=== PATIENT | female | born 1960 | race African-American/Black ===

== ENCOUNTER 2023-06-21 11:12 | Outpatient (REF) | payer MEDICARE, MEDICAID, SELFPAY ==
--- NOTE | ~2023-06-21 | XR_ITS ---
EXAMINATION: XR hand LT min 3V, XR wrist RT min 3V, XR wrist LT min 3V, XR hand RT min 3V CLINICAL INFORMATION: Additional Information: BILATERAL HAND/WRIST PAIN AND STIFFNESS : COMPARISON: 11/10/2014 TECHNIQUE: 3 views of each hand. 3 views of each wrist. FINDINGS: Right wrist: No fracture or dislocation. The carpal rows are well aligned. Joint spaces are maintained. Small osteophytes at the triscaphe joint and first carpometacarpal joint. No osseous erosions. The soft tissues are unremarkable. Right hand: No fracture or dislocation. Anatomic alignment. Mild joint space narrowing at the fifth digit distal interphalangeal joint with small osteophytes. No osseous erosions. The soft tissues appear unremarkable. Left wrist: No fracture or dislocation. The carpal rows are well aligned. Joint spaces are maintained. Small osteophytes of the triscaphe joint and first carpometacarpal joint. The soft tissues appear unremarkable. No osseous erosions. Left hand: No fracture or dislocation. Alignment maintained. No osseous erosions. Joint spaces are maintained. The soft tissues are unremarkable. XR/XR hand RT min 3V IMPRESSION: 1. Mild degenerative changes at the triscaphe joint and first carpometacarpal joints bilaterally. 2. Mild degenerative changes at the right fifth digit distal interphalangeal joint. 3. No osseous erosions.
--- NOTE | ~2023-06-21 | XR_ITS ---
EXAMINATION: XR hand LT min 3V, XR wrist RT min 3V, XR wrist LT min 3V, XR hand RT min 3V CLINICAL INFORMATION: Additional Information: BILATERAL HAND/WRIST PAIN AND STIFFNESS : COMPARISON: 11/10/2014 TECHNIQUE: 3 views of each hand. 3 views of each wrist. FINDINGS: Right wrist: No fracture or dislocation. The carpal rows are well aligned. Joint spaces are maintained. Small osteophytes at the triscaphe joint and first carpometacarpal joint. No osseous erosions. The soft tissues are unremarkable. Right hand: No fracture or dislocation. Anatomic alignment. Mild joint space narrowing at the fifth digit distal interphalangeal joint with small osteophytes. No osseous erosions. The soft tissues appear unremarkable. Left wrist: No fracture or dislocation. The carpal rows are well aligned. Joint spaces are maintained. Small osteophytes of the triscaphe joint and first carpometacarpal joint. The soft tissues appear unremarkable. No osseous erosions. Left hand: No fracture or dislocation. Alignment maintained. No osseous erosions. Joint spaces are maintained. The soft tissues are unremarkable. XR/XR wrist LT min 3V IMPRESSION: 1. Mild degenerative changes at the triscaphe joint and first carpometacarpal joints bilaterally. 2. Mild degenerative changes at the right fifth digit distal interphalangeal joint. 3. No osseous erosions.
--- NOTE | ~2023-06-21 | XR_ITS ---
EXAMINATION: XR hand LT min 3V, XR wrist RT min 3V, XR wrist LT min 3V, XR hand RT min 3V CLINICAL INFORMATION: Additional Information: BILATERAL HAND/WRIST PAIN AND STIFFNESS : COMPARISON: 11/10/2014 TECHNIQUE: 3 views of each hand. 3 views of each wrist. FINDINGS: Right wrist: No fracture or dislocation. The carpal rows are well aligned. Joint spaces are maintained. Small osteophytes at the triscaphe joint and first carpometacarpal joint. No osseous erosions. The soft tissues are unremarkable. Right hand: No fracture or dislocation. Anatomic alignment. Mild joint space narrowing at the fifth digit distal interphalangeal joint with small osteophytes. No osseous erosions. The soft tissues appear unremarkable. Left wrist: No fracture or dislocation. The carpal rows are well aligned. Joint spaces are maintained. Small osteophytes of the triscaphe joint and first carpometacarpal joint. The soft tissues appear unremarkable. No osseous erosions. Left hand: No fracture or dislocation. Alignment maintained. No osseous erosions. Joint spaces are maintained. The soft tissues are unremarkable. XR/XR wrist RT min 3V IMPRESSION: 1. Mild degenerative changes at the triscaphe joint and first carpometacarpal joints bilaterally. 2. Mild degenerative changes at the right fifth digit distal interphalangeal joint. 3. No osseous erosions.
--- NOTE | ~2023-06-21 | XR_ITS ---
EXAMINATION: XR hand LT min 3V, XR wrist RT min 3V, XR wrist LT min 3V, XR hand RT min 3V CLINICAL INFORMATION: Additional Information: BILATERAL HAND/WRIST PAIN AND STIFFNESS : COMPARISON: 11/10/2014 TECHNIQUE: 3 views of each hand. 3 views of each wrist. FINDINGS: Right wrist: No fracture or dislocation. The carpal rows are well aligned. Joint spaces are maintained. Small osteophytes at the triscaphe joint and first carpometacarpal joint. No osseous erosions. The soft tissues are unremarkable. Right hand: No fracture or dislocation. Anatomic alignment. Mild joint space narrowing at the fifth digit distal interphalangeal joint with small osteophytes. No osseous erosions. The soft tissues appear unremarkable. Left wrist: No fracture or dislocation. The carpal rows are well aligned. Joint spaces are maintained. Small osteophytes of the triscaphe joint and first carpometacarpal joint. The soft tissues appear unremarkable. No osseous erosions. Left hand: No fracture or dislocation. Alignment maintained. No osseous erosions. Joint spaces are maintained. The soft tissues are unremarkable. XR/XR hand LT min 3V IMPRESSION: 1. Mild degenerative changes at the triscaphe joint and first carpometacarpal joints bilaterally. 2. Mild degenerative changes at the right fifth digit distal interphalangeal joint. 3. No osseous erosions.
== END 2023-06-21 11:13 | disposition home or self-care (01) ==
LOC: HO.HHCX 11:12
PROVIDERS: Visit Provider Family Medicine
DX: M79.641 Pain in right hand (principal); M79.642 Pain in left hand; M25.531 Pain in right wrist; M25.532 Pain in left wrist
CPT/HCPCS: 73110; 73130

== ENCOUNTER 2025-08-27 09:50 | Outpatient (REF) | payer MEDICARE, SELFPAY ==
[2025-09-03 11:48] LABS: Anti Nuclear Antibody Screen NEGATIVE (NEGATIVE)
== END 2025-08-27 09:51 | disposition home or self-care (01) ==
LOC: HO.HHCL 09:50
PROVIDERS: PCP Family Medicine; Visit Provider Internal Medicine
DX: Z01.84 Encounter for antibody response examination (principal); M19.041 Primary osteoarthritis, right hand; M19.042 Primary osteoarthritis, left hand
CPT/HCPCS: 36415; 85652; 86038; 86039; 86140; 86200; 86431

== ENCOUNTER 2025-10-02 08:26 | Outpatient (REF) | payer MEDICARE, SELFPAY ==
--- OUTSIDE RECORDS SUMMARY | 2025-10-02 08:49 | XMS_ITS | Clinical Summary ---
Author Organization [employer] Address [address] [place] [address] 7 [place] [address] Care Team Providers Care Manager General Name Role Phone Roberta Mercado MD Primary Care Provider +1- [phone] Allergies No known active allergies Medications ciclopirox (Penlac) 8 % solutionIndic ations:Onycho mycosis Apply topically at bedtime. Use on affected nail every night for 48 weeks Please keep as inexpensive as possible 18 mL 3 09/25/20 25 Active Estrace 0.01 % creamIndicati ons:Dyspareun ia, female INSERT 2 GRAMS VAGINALLY IN THE EVENING FOR 2 WEEKS THEN USE 1 GRAM TWICE WEEKLY AFTER 42.5 g 11 09/26/20 25 Active estradiol (Estrace) 0.1 MG/GM vaginal creamIndicati ons:Dyspareun ia, female 2 gram per vagina nightly for 2 weeks then use 1 gram per vagina twice a week thereafter 42.5 g 3 12/19/19 25 025 Discontinued(Re order (will not trigger notification to Pharmacy)) ciclopirox (Penlac) 8 % solutionIndic ations:Onycho mycosis Apply topically at bedtime. 6 mL 08/27/20 25 025 Discontinued(Me d list cleanup (will not trigger notification to Pharmacy)) Estradiol (Estrace) 0.01 % creamIndicati ons:Dyspareun ia, female Insert 2 g into the vagina every 4th (fourth) day. 2 gram per vagina nightly for 2 weeks then use 1 gram per vagina twice a week thereafter 42.5 g 11 09/25/20 25 025 Discontinued Active Problems Problem Noted Date Diagnosed Date Arthritis of both hands 08/27/2025 Assessment & Plan (08/27/2025 12:43 PM EDT): Blood work ordered patient will be contacted with results She may take acetaminophen as needed Onychomycosis 08/27/2025 Assessment & Plan (09/25/2025 12:28 PM EST): Responding well to treatment. Started 08/27/25 recommending 48 weeks treatment. Rheumatoid labs were normal. Orders: ciclopirox (Penlac) 8 % solution; Apply topically at bedtime. Use on affected nail every night for 48 weeks Please keep as inexpensive as possible Basic Metabolic Panel; Future CBC; Future Assessment & Plan (08/27/2025 12:43 PM EDT): Ciclopirox ordered today Acquired trigger finger 08/27/2025 Assessment & Plan (08/27/2025 12:42 PM EDT): Patient will like to hold for now referral for local injection Paronychia of fingers of both hands 08/27/2025 Assessment & Plan (08/27/2025 12:42 PM EDT): She already drain them, treatment is conservative, advise warm soaking Vaginal atrophy 12/19/2024 Overview (12/19/2024): -good response with estrogen cream 3x week Cardiac risk counseling 08/27/2024 Overview (08/27/2024): Calculated 08/27/24 The ASCVD Risk score (Belkis HERNANDEZ, et al., 2019) failed to calculate for the following reasons: Cannot find a previous HDL lab Cannot find a previous total cholesterol lab No results found for: LDLCHOL -Atherosclerotic Cardiovascular Disease (ASCVD) Risk Calculator is intended for a person age 40-79 without ASCVD and with LDL-cholesterol < 190/mg/dl to assesses the chances of developing heart disease over the next 10 years. -ACC/AHA risk categories based on a person's estimated 10-year risk of CVD: ?Low - <5 percent ?Borderline risk - 5 to 7.4 percent ?Intermediate risk- 7.5 to 19.9 percent ?High risk- >=20 percent -Tobacco cessation: not applicable -Statin therapy:N/A -Importance of moderate physical activity and nutrition interventions discussed. 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 No evidence of infection. She will continue at the gym. Declines OT but will call if changes her mind. Assessment & Plan (07/29/2024 12:00 PM EDT): -Declines further work up or intervention at this time. No evidence of infection. She will continue at the gym. Declines OT but will call if changes her mind. Colon cancer screening 12/27/2023 Overview (01/17/2025): -declines colon cancer screening at this time 07/29/24 Assessment & Plan (07/29/2024 10:13 AM EDT): -declines colon cancer screening at this time 07/29/24 Other specified health status 06/21/2023 Overview (09/25/2025): -next physical exam due after 09/25/26 -eye care facilitated by [facility] is [facility] -[facility] care proxy filed 07/29/24 Assessment & Plan (09/25/2025 12:28 PM EST): -next physical exam due after 09/25/26 -eye care facilitated by [facility] is [facility] -[facility] care proxy filed 07/29/24 Assessment & Plan (07/29/2024 11:58 AM EDT): -next physical exam due after 07/29/25 -eye care facilitated by [facility] is [facility] care proxy filed 07/29/24 Assessment & Plan (06/21/2023 10:53 AM EDT): -next physical exam due after 06/21/2024. -eye care facilitated by -dental home is Trigger finger of right hand 05/03/2022 Overview (07/29/2024): -stable, occasional, declines intervention as doing well. Assessment & Plan (07/29/2024 11:59 AM EDT): -stable, occasional, declines intervention as doing well. Resolved Problems Problem Noted Date Diagnosed Date Resolved Date Bilateral wrist pain 06/21/2023 024 Overview (06/21/2023): Bilateral wrist splints ordered 06/21/2023. Assessment & Plan (06/21/2023 11:08 AM EDT): Bilateral wrist splints ordered 06/21/2023. Bilateral hand pain 06/21/2023 07/29/20 24 Overview (07/29/2024): 06/21/23 XRs of both hands and wrists showed: IMPRESSION: 1. Mild degenerative changes at the triscaphe joint and first carpometacarpal joints bilaterally. 2. Mild degenerative changes at the right fifth digit distal interphalangeal joint. 3. No osseous erosions. -Rheumatoid factor was ordered on 06/21/23, but pt did not complete labs. Assessment & Plan (07/29/2024 10:14 AM EDT): 06/21/23 XRs of both hands and wrists showed: IMPRESSION: 1. Mild degenerative changes at the triscaphe joint and first carpometacarpal joints bilaterally. 2. Mild degenerative changes at the right fifth digit distal interphalangeal joint. 3. No osseous erosions. -Rheumatoid factor was ordered on 06/21/23, but pt did not complete labs. She denies wanting further testing at this time 07/29/24 Assessment & Plan (06/21/2023 11:07 AM EDT): Will check x-ray and rheumatoid factor. Will consider OT referral in the future. Abnormal mammogram 05/03/2022 Overview (07/29/2024): -declines mammo 07/29/24 Assessment & Plan (07/29/2024 10:13 AM EDT): -declines mammo 07/29/24 Encounters Date Type Department Care Team Description 10/02/2025 Travel 10/01/[address] [address] Roberta Mercado MD chart prep 09/25/2025 10:00 AM EST Office Visit [address] [address] Roberta Mercado MD Epidermoid cyst (Primary Dx); Onychomycosis; Dyspareunia, female; Vitamin D deficiency; Screening cholesterol level; Other specified health status 09/25/[address] [address] Roberta Mercado MD Dyspareunia, female 09/25/2025 Travel 09/24/2025 Telephone [facility] [address] [place] [address] [phone] Imelda Penaloza [place] 09/18/2025 Patient Outreach [facility] [address] [place], [place] [phone] Roberta Mercado MD Pre-visit Planning (SDOH was already completed ) 09/18/2025 Travel 09/15/[address] [address] Kendra Wang MD 09/12/2025 Results Follow-Up [address] [phone] Kendra Wang MD Rheumatoid Factor, Cyclic Citrullinated Peptide (CCP) Antibody (IgG), PATRICIA Screen,IFA, with Reflex to Titer and Pattern, Additional followed-up results: 2 08/27/2025 9:15 AM EDT Office Visit [address] [phone] Kendra Wang MD Arthritis of both hands (Primary Dx); Onychomycosis; Acquired trigger finger; Paronychia of fingers of both hands 08/27/2025 Travel 08/26/[address] [address] Kendra Wang MD CHART PREP 08/26/2025 Travel 07/29/[address] [address] Roberta Mercado MD FYI 07/24/[address] [address] Roberta Mercado MD cancel appt 08/28/25 from Last 3 Months Immunizations Immunization Administration Dates Next Due TD (adult), 2 Lf tetanus tox oid, preservative free, adsorbed 02/20/2008 Social History Tobacco Use Types Packs/Day Years Used Date Smoking Tobacco: Never Passive Smoke Exposure: Never Smokeless Tobacco: Never Tobacco Cessation:Counseling Given: Not Answered Alcohol Use Standard Drinks/Week Comments Never 0 (1 standard drink = 0.6 oz pur e alcohol) Depression Answer Date Recorded Patient Health Questionnaire-9 Score 1 08/27/2025 Patient Health Questionnaire-9 Score 1 08/27/2025 Last PHQ-9: Questionnaire Data Not on file 1 Housing Stability Answer Date Recorded What is your housing situation today? I have kendallrowan srinivasan 08/27/[address] you li ve. Do you have problems with any of the following? None of the above 08/27/2025 Food Insecurity Answer Date Recorded Within the past 12 months, y ou worried that your food would run out before you got money to buy more: Never True 08/27/2025 Within the past 12 months,th e food you bought just didn't last and you didn't have enough money to get more: Never True 06/2025 Transportation Answer Date Recorded In the past 12 months, has l ack of transportation kept you from medical appts, meetings, work or from getting things needed for daily living? No 08/27/2025 Utilities Answer Date Recorded In the past 12 months, has t he [employer], gas, oil or water [employer] threatened to shut off services in your home? No 08/27/2025 Depression Answer Date Recorded Patient Health Questionnaire-2 Score 0 08/27/2025 Internet Access Answer Date Recorded Internet Access Q1 Yes 08/27/2025 Internet Access Q2 Not on file 08/27/2025 Comments Unknown Sex and Gender Information Value Date Recorded Sex Assigned at Female 09/19/2022 10:18 AM EDT Legal Sex Female 10:18 AM EDT Gender Identity Female 09/19/2022 10:18 AM EDT Sexual Orientation Straight 09/19/2022 10 :18 AM EDT Last Filed Vital Signs Vital Sign Reading Time Taken Comments Blood Pressure 118/62 09/25/2025 10:11 AM EST Pulse 76 09/25/2025 10:11 AM EST Temperature 36.2 C (97.1 F) 09/25/2025 10:11 AM EST Respiratory Rate 17 09/25/2025 10:11 AM EST Oxygen Saturation 99% 08/27/2025 9:10 AM EDT Inhaled Oxygen Concentration - - Weight 64.2 kg (141 lb 8 oz) 09/25/2025 10:11 AM EST Height 165.1 cm (5' 5 ) 09/25/2025 10:11 AM EST Body Mass Index 23.55 09/25/2025 10:11 AM EST Plan of Treatment Upcoming Encounters Date Type Department Care Team (Late st Contact Info) Description 10/02/2025 9:00 AM EST Office Visit [facility] [address] [place] [phone] Roberta Mercado MD [address] [place] [address] Arrived Health Maintenance Due Date Last Done Comments CT Colonography 1958 Colonoscopy 1958 Colorectal Cancer Screening 1958 FIT DNA/Cologuard 1958 FIT 1958 FOBT 1958 Sigmoidoscopy 1958 Mammogram 04/29/2021 04/29/2019 Influenza Vaccine (#1) 2026 Postp oned from 07/21/2025 (Patient Refused) Alcohol/Substance Use Screening 08/27/2026 08/27/2025 Depression Screening 08/27/2026 08/27/2025, 08/27/2025 SDOH Screening 08/27/2026 08/27/2025 COVID-19 Vaccine (1 - 2024-2 6 season) 2026 Postponed from 07/21/2025 (Patient Refused) DTaP/Tdap/Td Vaccines (1 - Tdap) 09/25/2026 02/20/2008 Postponed from 02/21/2008 (Patient Refused) Pneumococcal Vaccine: 50+ Years (1 of 1 - PCV) 09/25/2026 Postponed from 2008 (Patient Refused) Tobacco Screening 09/25/2026 09/25/2025 Zoster Vaccines (1 of 2) 09/25/2026 Pos tponed from 2008 (Patient Refused) RSV Patients and Patients Aged 60 years or older (1 - 1-dose 75+ series) 2033 Cervical Cancer Screening Discontinued HPV/Cotest Discontinued 04/18/2019, 04/18/2019 Pap Smear Discontinued 04/18/2019 HIB Vaccines Aged Out No longer eligi ble based on patient's age to complete this topic HPV Vaccines Aged Out No longer eligi ble based on patient's age to complete this topic Hepatitis A Vaccines Aged Out No long er eligible based on patient's age to complete this topic Hepatitis B Vaccines Aged Out No long er eligible based on patient's age to complete this topic Hepatitis C Screening Discontinued IPV Vaccines Aged Out No longer eligi ble based on patient's age to complete this topic Meningococcal B Vaccine Aged Out No l onger eligible based on patient's age to complete this topic Meningococcal Vaccine Aged Out No emanuel rupert eligible based on patient's age to complete this topic RSV under 20 months Aged Out No longe r eligible based on patient's age to complete this topic Rotavirus Vaccines Aged Out No longer eligible based on patient's age to complete this topic Procedures Procedure Name Priority Date/Time Associated Diagnosis Comments SKIN EXCISION Routine 09/25/2025 12:21 PM EST Epidermoid cyst C-REACTIVE PROTEIN Routine 08/27/2025 10 :34 AM EDT Arthritis of both hands SED RATE BY MODIFIED WESTERGREN Routine 08/27/2025 10:34 AM EDT Arthritis of both hands CYCLIC CITRULLINATED PEPTIDE (CCP) AB (IGG) Routine 08/27/2025 10:34 AM EDT Arthritis of both hands RHEUMATOID FACTOR Routine 08/27/2025 10: 34 AM EDT Arthritis of both hands PATRICIA SCREEN, IFA, W/REFL TITER AND PATTERN Routine 08/27/2025 10:24 AM EDT Arthritis of both hands BI MAMMOGRAM SCREENING BILATERAL Routine 04/29/2019 8:46 AM EDT HPV HIGH RISK PCR Routine 04/18/2019 12: 00 AM EDT PAP SMEAR Routine 04/18/2019 12:00 AM EDT from Last 3 Months or Most Recently Relevant to Health Maintenance Results * Skin excision (09/25/2025 12:21 PM EST) Roberta James MD - 09/25/2025 12:21 PM EST Roberta Mercado MD 09/25/2025 12:28 PM Skin excision Date/Time: 09/25/2025 12:21 PM Performed by: Roberta Mercado MD Authorized by: Roberta Mercado MD Consent: Consent obtained: Verbal Consent given by: Patient Risks, benefits, and alternatives were discussed: yes Risks discussed: Bleeding, infection, incomplete removal and poor cosmetic result Alternatives discussed: No treatment [place] protocol: Procedure explained and questions answered to patient or proxy's satisfaction: yes Patient identity confirmed: Verbally with patient Number of Lesions: 1 Lesion 1: Body area: trunk Trunk location: back Initial size (mm): 5 Final defect size (mm): 8 Malignancy: benign lesion Destruction method: curettage Closure complexity: simple us Roberta Mercado MD DERM PROCEDURE ORDERABLES Final Result * Cyclic Citrullinated Peptide (CCP) Antibody (IgG) (08/27/2025 10:34 AM EDT) Cyclic Citrullinated Peptide <16 UNITS [facility] Comment:Reference RangeNegat damien: <20Weak Positive: 20-39Moderate Positive: 40-59Strong Positive: >59THIS TEST WAS PERFORMED AT:[employer] [address] [phone] JIMENEZ MD Blood Venous blood specimen / Unknown 08/27/2025 10:34 AM EDT 08/27/2025 11:24 AM EDT us Kendra Peguero MD LAB BLOOD ORDERABLES Final Result Performing Organization Address City/[facility]/ZIP Co de Phone Number [facility] [address] [place] [phone] * Sed Rate by Modified Shawnren (08/27/2025 10:34 AM EDT) [facility] Erythrocyte Sedimentation Rate 7 0 - 20 MM/HR [facility] Comment:Patients with polycy themia and many hemoglobin abnormalitiesmay have depressed sed rates whereas patients with anemiamay have elevated sed rates. Blood Venous blood specimen / Unknown 08/27/2025 10:34 AM EDT 08/27/2025 11:24 AM EDT us Kendra Peguero MD LAB BLOOD ORDERABLES Final Result Performing Organization Address [facility] Co de Phone Number [facility] [address] [place] [phone] * Rheumatoid Factor (08/27/2025 10:34 AM EDT) [facility] Rheumatoid Factor <13.0 <15.0 IU/mL [facility] Blood Venous blood specimen / Unknown 08/27/2025 10:34 AM EDT 08/27/2025 11:24 AM EDT us Kendra Peguero MD LAB BLOOD ORDERABLES Final Result Performing Organization Address [facility] Co de Phone Number [facility] [address] [place] [phone] * C-reactive Protein (08/27/2025 10:34 AM EDT) C Reactive Protein <0.10 < or = 0.50 mg/dL [facility] Blood Venous blood specimen / Unknown 08/27/2025 10:34 AM EDT 08/27/2025 11:24 AM EDT Kendra ePguero MD LAB BLOOD ORDERABLES Final Result Performing Organization Address [facility] de Phone Number [facility] [address] [place] [phone] * PATRICIA Screen,IFA, with Reflex to Titer and Pattern (08/27/2025 10:24 AM EDT) Pathologist [facility] Anti Nuclear Antibody Screen NEGATIVE NEGATIVE [facility] Comment:PATRICIA IFA is a first l ine screen for detecting thepresence of up to approximately 150 autoantibodies invarious autoimmune diseases. A negative PATRICIA IFA resultsuggests an PATRICIA-associated autoimmune disease is notpresent at this time, but is not definitive. If thereis high clinical suspicion for Sjogren's syndrome,testing for anti-SS-A/Ro antibody should be considered.Anti-Jazmin-1 antibody should be considered for clinicallysuspected inflammatory myopathies.AC-0: NegativeInternational Consensus on PATRICIA Patterns(https://doi.org/10.1515/jrsx-8803-4168)For additional information, please refer tohttp://education.265 Network/faq/YEK070(This link is being provided for informational/educational purposes only.)THIS TEST WAS PERFORMED AT:[employer] [place] [phone] JIMENEZ MD Blood Venous blood specimen / Unknown 08/27/2025 10:24 AM EDT 08/27/2025 11:24 AM EDT us Kendra Peguero MD LAB BLOOD ORDERABLES Final Result Performing Organization Address [facility] Co de Phone Number [facility] [address] [place] [address] [place] [phone] * DIGITAL BILATERAL SCREEN 1 (04/29/2019 8:46 AM EDT) Anatomical Region Laterality Modality Breast Bilateral Mammography 04/29/2019 8:46 AM EDT Narrative 04/29/2019 8:47 AM EDT Refer to the Notes tab for result details [facility] Procedure: DIGITAL BILATERAL SCREEN 1 Procedure Note Provider, Emile, - 02/11/2023 Refer to the Notes tab for result details [facility] Procedure: DIGITAL BILATERAL SCREEN 1 Roberta Mercado MD IMG BI PROCEDURES Final Re sult * HPV High Risk PCR (04/18/2019 12:00 AM EDT) Swab Cervical swab / Unknown Historical Provider LAB MICROBIOLOGY - GENERA L ORDERABLES Final Result Performing Organization Address [facility]/ZIP Co de Phone Number [facility] [address] [place] [phone] * Pap Smear (04/18/2019 12:00 AM EDT) Swab Historical Provider LAB CYTOLOGY ORDERABLES F inal Result Performing Organization Address [facility]/ZIP Co de Phone Number [facility] [address] [place] [phone] from Last 3 Months or Most Recently Relevant to Health Maintenance Insurance MEDICARE ADVANTAGE HMO Advance Directives Documents on File Type Date Recorded Patient Wood Cabinetmaker Expl anation Advance Directives and Living Will 07/29/2024 Health Care Proxy 07/29/24 Care Teams Manager General Relationship Specialty Start Date End Date [place], MD Roberta [address] [place] [phone] PCP - General Family Medicine 11/20/18
--- OUTSIDE RECORDS SUMMARY | 2025-10-02 08:49 | XMS_ITS | Encounter Summary ---
Author Organization [employer] [facility] Address [address] [place] [phone] Care Team Providers Care Healthcare Customer Service Name Role Phone Roberta Mercado MD Primary Care Provider +1- [phone] Encounter Details Date Type Department Care Team (Late Contact Info) Description 07/10/2023 Telephone [facility] [address] [place] [address] [phone] Roberta Mercado MD [address] [place] [address] [phone] Social History Tobacco Use Types Packs/Day Years Used Date Smoking Tobacco: Never Assessed Depression Answer Date Recorded Patient Health Questionnaire-9 Score 0 06/21/2023 Depression Answer Date Recorded Patient Health Questionnaire-2 Score 0 06/21/2023 Comments Unknown Sex and Gender Information Value Date Recorded Sex Assigned at Female 09/19/2022 10:18 AM EDT Legal Sex Female 10:18 AM EDT Gender Identity Female 09/19/2022 10:18 AM EDT Sexual Orientation Straight 09/19/2022 10 :18 AM EDT documented as of this encounter Plan of Treatment Upcoming Encounters Date Type Department Care Team (Late st Contact Info) Description 10/02/2025 9:00 AM EST Office Visit [facility] [address] [place] [address] [phone] Roberta Mercado MD [address] [place] [address] [phone] Arrived documented as of this encounter Visit Diagnoses Not on filedocumented in this encounter Additional Health Concerns Assessment Noted Time PHQ-9 Depression Total Score: 0 06/21/20 10:45 AM EDT documented as of this encounter Care Teams Healthcare Customer Service Relationship Specialty Start Date End Date [place], MD Roberta [address] [place] [phone] PCP - General Family Medicine 11/20/18 documented as of this encounter
--- OUTSIDE RECORDS SUMMARY | 2025-10-02 08:49 | XMS_ITS | Encounter Summary ---
Author Organization [employer] Address [address] [facility] [address] [place] [address] Care Team Providers Care Director Design Name Role Phone Roberta Mercado MD Primary Care Provider +1- [phone] Encounter Details Date Type Department Care Team (Latest Contact Info) Description 09/12/2025 Results Follow-Up [facility] [address] [place], [place] [phone] Kendra Wang MD [address] [place] [address] Rheumatoid Factor, Cyclic Citrullinated Peptide (CCP) Antibody (IgG), PATRICIA Screen,IFA, with Reflex to Titer and Pattern, Additional followed-up results: 2 Social History Tobacco Use Types Packs/Day Years Used Date Smoking Tobacco: Never Smokeless Tobacco: Never Alcohol Use Standard Drinks/Week Comments Never 0 (1 standard drink = 0.6 oz pur e alcohol) Depression Answer Date Recorded Patient Health Questionnaire-9 Score 1 08/27/2025 Patient Health Questionnaire-9 Score 1 08/27/2025 Last PHQ-9: Questionnaire Data Not on file 1 Housing Stability Answer Date Recorded What is your housing situation today? I have kendall srinivasan 08/27/[address] you [...] the past 12 months, has t he electric, gas, oil or water company threatened to shut off services in your [...] Description 10/02/2025 9:00 AM EST Office Visit [facility] [address] [place] [phone] Roberta Mercado MD [address] [place] [phone] Arrived documented as of this encounter Visit Diagnoses Not on filedocumented in this encounter Additional Health Concerns Assessment Noted Time PHQ-9 Depression Total Score: 1 08/27/20 25 9:43 AM EDT documented as of this encounter Care Teams Director Design Relationship Specialty Start Date End Date Roberta Mercado MD [address] [place] [phone] PCP - General Family Medicine 11/20/18 documented as of this encounter
--- OUTSIDE RECORDS SUMMARY | 2025-10-02 08:49 | XMS_ITS | Encounter Summary ---
Author Organization [employer] Address [address] [place] [address] [place] [address] Care Team Providers Care Examination Supervisor Name Role Phone Roberta Mercado MD Primary Care Provider +1- [phone] Encounter Details Date Type Department Care Team (Late st Contact Info) Description 06/20/2023 Abstract [facility] [address] [place], [place] [phone] Roberta Mercado MD [address] [place], [place] [phone] Social History Tobacco Use Types Packs/Day Years [...] AM EDT documented as of this encounter Functional Status * Over the past 2 weeks, how often have you been bothered by any of the following problems? Question Answer Date of Assessment Author Patient Health Questionnaire-2 Score 0 12/2022 10:45 AM Amna Feng MA * Over the past 2 weeks, how often have you been bothered by any of the following problems? Question Answer Date of Assessment Author Little interest or pleasure in doing things Not at all 06/21/2023 10:45 AM Amna Feng M A Feeling down, depressed, or hopeless Not at all 06/21/2023 10:45 AM Amna Feng M A Trouble falling or staying asleep, or sleeping too much Not at all 06/21/2023 10:45 AM Amna Feng MA Feeling tired or having tomas le energy Not at all 06/21/2023 10:45 AM Amna Feng M A Poor appetite or overeating Not at all 06/21/2023 10 :45 AM Amna Feng MA Feeling bad about yourself - or that you are a failure or have let yourself or your family down Not at all 06/21/2023 10:45 AM Amna Lisa MA Trouble concentrating on thi ngs, such as reading the newspaper or watching television Not at all 06/21/2023 10:45 AM Amna Feng M A Moving or speaking so slowly that other people could have noticed? Or the opposite - being so fidgety or restless that you have been moving around a lot more than usual. Not at all 06/21/2023 10:45 AM Amna Feng M A Thoughts that you would be better off or hurting yourself in some way Not at all 06/21/2023 10:45 AM Amna Feng MA Patient Health Questionnaire -9 Score 0 06/21/2023 10:45 AM Amna Feng M A documented as of this encounter Plan of Treatment Upcoming Encounters Date Type Department Care Team (Late st Contact Info) Description 10/02/2025 9:00 AM EST Office Visit [facility] [address] [place] [address] Roberta Mercado MD [address] [place] [address] Arrived documented as of this encounter Visit Diagnoses Not on filedocumented in this encounter Care Teams Examination Supervisor Relationship Specialty Start Date End Date Roberta Mercado MD [address] [place] [phone] PCP - General Family Medicine 11/20/18 documented as of this encounter
--- OUTSIDE RECORDS SUMMARY | 2025-10-02 08:49 | XMS_ITS | Encounter Summary ---
Author Organization [facility] Address [address] [place] [address] 7 [place] [address] Care Team Providers Care Manager Money Name Role Phone Roberta Mercado MD Primary Care Provider +1- [phone] Encounter Details Date Type Department Care Team (Late st Contact Info) Description 12/06/2022 Abstract [facility] [address] [place] [address] [phone] Roberta Mercado MD [address] [place] [address] [phone] Social History Tobacco Use Types Packs/Day Years Used Date Smoking Tobacco: Never Assessed Comments Unknown Sex and Gender Information Value [...] Description 10/02/2025 9:00 AM EST Office Visit [facility] [address] [place] [address] [phone] Roberta Mercado MD [address] [place] [address] [phone] Arrived documented as of this encounter Procedures Procedure Name Priority Date/Time Associated Diagnosis Comments HPV HIGH RISK PCR Routine 04/18/2019 12:00 AM EDT PAP SMEAR Routine 04/18/2019 12:00 AM EDT documented in this encounter Results * Pap Smear (04/18/2019 12:00 AM EDT) Swab Historical Provider LAB CYTOLOGY ORDERABLES F inal Result Performing Organization Address [facility] de Phone Number [facility] [address] [place] [phone] * HPV High Risk PCR (04/18/2019 12:00 AM EDT) Swab Cervical swab / Unknown Historical Provider LAB MICROBIOLOGY - GENERA L ORDERABLES Final Result Performing Organization Address [facility] de Phone Number [facility] [address] [place] [phone] documented in this encounter Visit Diagnoses Not on filedocumented in this encounter Care Teams Manager Money Relationship Specialty Start Date End Date Roberta Mercado MD [address] [place] [phone] PCP - General Family Medicine 11/20/18 documented as of this encounter
--- OUTSIDE RECORDS SUMMARY | 2025-10-02 08:49 | XMS_ITS | Encounter Summary ---
Author Organization [employer] Address [address] [facility] [address] [place] [address] Care Team Providers Care Steward/Stewardess [employer] Name Role Phone Roberta Mercado MD Primary Care Provider +1- [phone] Encounter Details Date Type Department Care Team (Late st Contact Info) Description 12/13/2024 Orders Only [facility] [address] [place], [place] [phone] Roberta Mercado MD [address] [place], [place] [phone] Dyspareunia, female Social History Tobacco Use Types Packs/Day Years Used Date Smoking Tobacco: Never Smokeless Tobacco: Never Alcohol Use Standard Drinks/Week Comments Never 0 (1 standard drink = 0.6 oz pur e alcohol) Depression Answer Date Recorded Patient Health Questionnaire-9 Score 0 07/29/2024 Patient Health Questionnaire-9 Score 0 07/29/2024 Last PHQ-9: Questionnaire Data Not on file 0 07/29/2024 Housing Stability Answer Date Recorded What is your housing situation today? I have kendall srinivasan 07/15/[address] you li ve. Do you have problems with any of the following? None of the above 07/15/2024 Food Insecurity Answer Date Recorded Within the past 12 months, y ou worried that your food would run out before you got money to buy more: Never True 07/15/2024 Within the past 12 months,th e food you bought just didn't last and you didn't have enough money to get more: Never True Transportation Answer Date Recorded In the past 12 months, has l ack of transportation kept you from medical appts, meetings, work or from getting things needed for daily living? No 07/15/2024 Utilities Answer Date Recorded In the past 12 months, has t he electric, gas, oil or water company threatened to shut off services in your home? No 07/15/2024 Depression Answer Date Recorded Patient Health Questionnaire-2 Score 0 07/29/2024 Internet Access Answer Date Recorded Internet Access Q1 Yes 07/22/2024 Internet Access Q2 Not on file 07/22/2024 Comments Unknown Sex and Gender Information Value [...] Description 10/02/2025 9:00 AM EST Office Visit [facility] [address] [place] [phone] Roberta Mercado MD [address] [place] [address] Arrived documented as of this encounter Visit Diagnoses Diagnosis Dyspareunia, female documented in this encounter Additional Health Concerns Assessment Noted Time PHQ-9 Depression Total Score: 0 07/29/20 24 9:33 AM EDT documented as of this encounter Care Teams Steward/Stewardess [employer] Relationship Specialty Start Date End Date Roberta Mercado MD [address] [place] [phone] PCP - General Family Medicine 11/20/18 documented as of this encounter
--- OUTSIDE RECORDS SUMMARY | 2025-10-02 08:49 | XMS_ITS | Encounter Summary ---
Author Organization [employer] Address [address] [facility] 7 [place] [address] Care Team Providers Care Ice Cream Maker Name Role Phone Roberta Mercado MD Primary Care Provider +1- [phone] Reason for Visit * Reason Onset Date Comments chart prep 10/01/2025 Encounter Details Date Type Department Care Team ([facility] st Contact Info) Description 10/01/2025 Telephone [facility] [address] [place], [place] [phone] Roberta Mercado MD [address] [place] [address] chart prep Social History Tobacco Use Types Packs/Day Years Used Date Smoking Tobacco: Never Passive Smoke Exposure: Never Smokeless Tobacco: Never Alcohol Use Standard [...] AM EDT documented as of this encounter Miscellaneous Notes * Telephone Encounter - Sonya Powell MA - 10/01/2025 2:16 PM EST ..Chart Prep Labs: not done Images: not applicable Vaccines due: Updated Referrals: Not Applicable Screenings: Colonoscopy and Mammogram Overdue care gaps: None documented in this encounter Plan of Treatment Upcoming Encounters Date Type Department Care Team (Late st Contact Info) Description 10/02/2025 9:00 AM EST Office Visit [facility] [address] [place] [phone] Roberta Mercado MD [address] [place] [phone] Arrived documented as of this encounter Visit Diagnoses Not on filedocumented in this encounter Additional Health Concerns Assessment Noted Time PHQ-9 Depression Total Score: 1 08/27/20 25 9:43 AM EDT documented as of this encounter Care Teams Ice Cream Maker Relationship Specialty Start Date End Date Roberta Mercado MD [address] [place] [phone] PCP - General Family Medicine 11/20/18 documented as of this encounter
[2025-10-02 11:33] LABS: MANUAL DIFF FLAG NO
[2025-10-02 11:40] LABS: Hematocrit 43.6 % (37.0-47.0); Hemoglobin 13.9 g/dl (12.0-16.0); Imm Gran Abs Auto 0.01 X10*3/uL (0.00-0.03); Imm Gran Pct Auto 0.2 % (0.0-0.4); Lymphocytes Absolute Auto 2.6 X10*3/uL (1.2-4.9); Mean Corpuscular HGB Conc 31.9 g/dl (31.0-35.0); Mean Corpuscular Hemoglobin 28.7 pg (27.0-33.0); Mean Corpuscular Volume 90.1 fL (80.0-98.0); NRBC Abs Auto 0.000 X10*3/uL (0.0-0.012); NRBC Pct Auto 0.0 /100WBC (0.0-0.2); Platelet Count 213 X10*3/uL (160-400); Red Blood Count 4.84 X10*6/uL (4.20-5.50); White Blood Count 5.5 X10*3/uL (4.8-10.8)
[2025-10-02 12:21] LABS: Alanine Aminotransferase 29 U/L (0-31); Albumin Level 4.5 g/dL (3.5-5.0); Alkaline Phosphatase 78 U/L (39-117); Anion Gap 13 (12-20); Aspartate Amino Transferase 25 U/L (5-31); Blood Urea Nitrogen 14 mg/dL (9-16); Calcium 9.5 mg/dL (8.4-10.2); Carbon Dioxide 26 mmol/L (22-29); Chloride 108 mmol/L (96-108); Cholesterol 208 mg/dL (<200); Estimated Glomerular Filt Rate > 60; HDL Cholesterol 58 mg/dL (>40); Potassium 3.9 mmol/L (3.3-5.1); Sodium 143 mmol/L (135-145); Total Protein 7.4 g/dL (6.5-8.0); Triglycerides 74 mg/dL (<150)
== END 2025-10-02 08:27 | disposition home or self-care (01) ==
LOC: HO.HHCL 08:26
PROVIDERS: PCP Family Medicine; Visit Provider Family Medicine
DX: Z13.89 Encounter for screening for other disorder (principal)
CPT/HCPCS: 36415; 80048; 80061; 80076; 82306; 85025